=== PATIENT | male | born 2000 | race Two or more races ===

== ENCOUNTER 2024-05-05 18:40 | Emergency (ER) | payer OTHER ==
[~2024-05-05] VITALS: Ht 180.3 cm; Wt 78.9 kg
[2024-05-05 20:39] LABS: Urine Bacteria None Seen /hpf (None Seen)
[2024-05-05 20:56] LABS: Urine Blood Negative /uL (Negative); Urine Clarity Clear (Clear); Urine Color Yellow (Yellow); Urine Mucus FEW (None Seen); Urine Protein, UAD TRACE (Negative); Urine Specific Gravity 1.038 (1.001-1.035); Urine Urobilinogen Normal (Negative); Urine WBC 1 /hpf (0 - 3); Urine pH 5.5 (5.0-9.0)
[2024-05-05 21:45] VITALS: BP 124/59; PULSE 73; RESP 15; TEMP 98.5; O2SAT 98
== END 2024-05-05 21:48 | disposition home or self-care (01) ==
LOC: ER 18:40
DX: N50.3 Cyst of epididymis (principal); I86.1 Scrotal varices
CPT/HCPCS: 76870; 81001

== ENCOUNTER 2024-05-26 02:29 | Emergency (ER) | payer OTHER ==
[~2024-05-26] VITALS: Ht 180.3 cm; Wt 80.0 kg
[2024-05-26 03:43] LABS: Urine Bacteria None Seen /hpf (None Seen)
[2024-05-26 03:48] LABS: Urine Blood Negative /uL (Negative); Urine Clarity Clear (Clear); Urine Color Light-Yellow (Yellow); Urine Protein, UAD Negative (Negative); Urine Specific Gravity 1.029 (1.001-1.035); Urine Urobilinogen Normal (Negative); Urine WBC 1 /hpf (0 - 3)
[2024-05-26 04:11] LABS: Amphetamine Screen, Urine Neg (NEGATIVE); Barbiturate Scree,Urine Neg (NEGATIVE); Benzodiazephine Screen, Urine Neg (NEGATIVE); Cannabinoid Screen, Urine Neg (NEGATIVE); Cocaine Screen, Urine Neg (NEGATIVE); Opiate Scree,Urine Neg (NEGATIVE); Phencyclidine Screen, Urine Neg (NEGATIVE)
[2024-05-26 04:55] VITALS: TEMP 98.4
[2024-05-26] MEDS: HYDROcodone-ACET 5/325MG TAB PO ONE (04:56)
[2024-05-26] MEDS ORDERED: CYCL1POW XX (05:45)
[2024-05-26 06:04] VITALS: BP 105/56; PULSE 58
[2024-05-26 06:22] VITALS: RESP 18; O2SAT 100
== END 2024-05-26 06:25 | disposition home or self-care (01) ==
LOC: ER 02:29
DX: R10.9 Unspecified abdominal pain (principal)
CPT/HCPCS: 74176; 80307; 81001

== ENCOUNTER → 2024-06-23 | Outpatient (CLI) | payer OTHER ==
[~2024-06-23] MED LIST: CYCL1POW XX
[2024-06-23 13:11] LABS: Urine Bacteria None Seen /hpf (None Seen)
[2024-06-23 13:16] LABS: Basophils # (auto) 0 10 ^3/uL (0-0.2); Basophils % (auto) 0.7 % (0.0-2.0); Eosinophils # (auto) 0.1 10 ^3/uL (0-0.8); Eosinophils % (auto) 1.2 % (0.0-7.0); Hematocrit 46.6 % (41.0-53.0); Hemoglobin 16.6 g/dL (13.5-17.5); Lymphocytes % (auto) 34.9 % (10.0-50.0); Mean Corpuscular Hemoglobin 29.8 pg (28.0-32.0); Mean Corpuscular Hgb Conc. 35.6 g/dL (32.0-36.0); Mean Corpuscular Volume 83.8 fL (80.0-100.0); Monocytes # (auto) 0.4 10 ^3/uL (0-1.3); Monocytes % (auto) 7.4 % (0.0-12.0); Neutrophils # (auto) 3.1 10 ^3/uL (1.6-8.6); Neutrophils % (auto) 55.8 % (37.0-80.0); Nucleated Red Blood Cells % 0.1 %; Platelet Count (auto) 279 10^3/uL (140-450); Red Blood Cells 5.55 10^6/uL (4.5-5.90); Red Cell Distribution Width 12.6 % (11.8-14.3); White Blood Cell 5.6 10^3/uL (4.4-10.8)
[2024-06-23 13:23] LABS: Urine Blood Negative /uL (Negative); Urine Clarity Clear (Clear); Urine Color Yellow (Yellow); Urine Protein, UAD Negative (Negative); Urine Specific Gravity 1.022 (1.001-1.035); Urine Urobilinogen Normal (Negative); Urine WBC 1 /hpf (0 - 3)
[2024-06-23 14:03] LABS: Alanine Aminotransferase 20 U/L (7-40); Albumin 4.8 g/dL (3.2-4.8); Alkaline Phosphatase 63 U/L (46-116); Anion Gap 8 (5-15); Aspartate Aminotransferase 19 U/L (13-40); BUN/Creatinine Ratio 12.6 (10.0-20.0); Blood Urea Nitrogen 13 mg/dL (9-23); Carbon Dioxide 27 mmol/L (20-30); Chloride 103 mmol/L (98-107); Cholesterol 136 mg/dL (< 200); Glucose 87 mg/dL (74-106); HDL Cholesterol 49 mg/dL (40-59); LDL Cholesterol 82 mg/dL (< 100); Potassium 4.2 mmol/L (3.5-5.1); Sodium 138 mmol/L (136-145); Triglycerides 50 mg/dL (< 150)
[2024-06-23 14:04] LABS: Bilirubin, Total 1.7 mg/dL (0.2-1.0); Total Protein 7.8 g/dL (5.7-8.2)
== END | disposition home or self-care (01) ==
LOC: LAB 12:54
PROVIDERS: ATTEND Internal Medicine
DX: M25.561 Pain in right knee (principal); L70.0 Acne vulgaris; Z29.9 Encounter for prophylactic measures, unspecified
CPT/HCPCS: 36415; 80053; 80061; 81001; 83036; 84439; 84443; 85025

== ENCOUNTER → 2024-11-10 | Outpatient (CLI) | payer OTHER ==
[2024-11-10 09:45] LABS: Urine Bacteria None Seen /hpf (None Seen)
[2024-11-10 10:02] LABS: Basophils # (auto) 0 10 ^3/uL (0-0.2); Basophils % (auto) 0.8 % (0.0-2.0); Eosinophils # (auto) 0.1 10 ^3/uL (0-0.8); Eosinophils % (auto) 2.3 % (0.0-7.0); Hematocrit 46.9 % (41.0-53.0); Hemoglobin 15.8 g/dL (13.5-17.5); Lymphocytes # (auto) 1.8 10 ^3/uL (0.4-5.4); Lymphocytes % (auto) 39.3 % (10.0-50.0); Mean Corpuscular Hemoglobin 28.8 pg (28.0-32.0); Mean Corpuscular Hgb Conc. 33.8 g/dL (32.0-36.0); Mean Corpuscular Volume 85.3 fL (80.0-100.0); Monocytes # (auto) 0.4 10 ^3/uL (0-1.3); Monocytes % (auto) 9.1 % (0.0-12.0); Neutrophils # (auto) 2.2 10 ^3/uL (1.6-8.6); Neutrophils % (auto) 48.5 % (37.0-80.0); Nucleated Red Blood Cells % 0.2 %; Platelet Count (auto) 252 10^3/uL (140-450); Red Cell Distribution Width 12.9 % (11.8-14.3); White Blood Cell 4.5 10^3/uL (4.4-10.8)
[2024-11-10 11:12] LABS: Urine Blood Negative /uL (Negative); Urine Clarity Clear (Clear); Urine Color Yellow (Yellow); Urine Protein, UAD Negative (Negative); Urine Specific Gravity 1.028 (1.001-1.035); Urine Squamous Epithelial Cell FEW /hpf (<5); Urine Urobilinogen Normal (Negative); Urine WBC 1 /HPF (0-3); Urine pH 7.5 (5.0-9.0)
[2024-11-10 11:51] LABS: Alanine Aminotransferase 28 U/L (7-40); Anion Gap 6 (5-15); Calcium 10.1 mg/dL (8.7-10.4); Carbon Dioxide 29 mmol/L (20-31); Chloride 103 mmol/L (98-107); Potassium 4.1 mmol/L (3.5-5.1); Sodium 138 mmol/L (136-145)
[2024-11-10 11:52] LABS: BUN/Creatinine Ratio 14.3 (10.0-20.0); Blood Urea Nitrogen 14 mg/dL (9-23); Glucose 92 mg/dL (74-106)
[2024-11-10 11:54] LABS: Albumin 4.6 g/dL (3.2-4.8); Aspartate Aminotransferase 39 U/L (13-40); Bilirubin, Total 0.9 mg/dL (0.2-1.0); Total Protein 7.1 g/dL (5.7-8.2)
[2024-11-10 12:30] LABS: Alkaline Phosphatase 60 U/L (46-116)
[2024-11-11 13:33] LABS: Triglycerides 53 mg/dL (< 150)
[2024-11-11 13:34] LABS: Cholesterol 121 mg/dL (< 200); LDL Cholesterol 62 mg/dL (< 100)
[2024-11-11 13:35] LABS: HDL Cholesterol 52 mg/dL (40-59)
== END | disposition home or self-care (01) ==
LOC: LAB 09:30
PROVIDERS: ATTEND Internal Medicine
DX: Z00.01 Encounter for general adult medical examination with abnormal findings (principal); R17 Unspecified jaundice; Z83.3 Family history of diabetes mellitus; Z82.49 Family history of ischemic heart disease and other diseases of the circulatory system
CPT/HCPCS: 36415; 80053; 80061; 81001; 83036; 84439; 84443; 85025

== ENCOUNTER 2025-09-09 11:56 | Inpatient (IN) | payer OTHER ==
[~2025-09-09] VITALS: Ht 180.3 cm; Wt 95.0 kg
--- NOTE | 2025-09-09 12:54 | ED.PDOC ---
GI ASSESSMENT HPI Comments 25-year-old male who comes in with chief complaint of right upper quadrant pain. The patient states that the symptoms started last night. He states that the pain is an 8/10. He denies any radiation of the pain. The patient also denies any nausea, vomiting, fever or chills. He called his primary care doctor and was told to come to the emergency department's for evaluation. Chief Complaint: Abdominal Pain Time Seen by MD: 12:02 Reviewed Notes: Nurses Notes, Medications, Allergies (No allergies to medicatio ns) Allergies: Coded Allergies: NO KNOWN ALLERGIES (Unverified , 05/05/24) Home Meds Active Scripts Cyclobenzaprine HCl (Cyclobenzaprine Hydrochlo) 1 Pow Pow, 1 POW XX TID, #30 POW Prov:BRYNN CEDILLO MD 05/26/24 Information Source: Patient Mode of Arrival: Ambulatory Timing: Hours (Started at 11:30 a.m. last night) Duration: Since onset Prehospital treatment: None Quality: Aching, Burning Vomitus: None Stool: Normal Severity: Moderate Recent: None Recent Hx of: None Pain Location: RUQ Modifying Factors: Nothing Associated sign and symptoms: Abdominal Pain Past Medical History PAST MEDICAL HISTORY: Denies Surgical History: Denies all surgeries Family History Family History: Family hx of DM Social History Smoker: Non-Smoker Alcohol: Occasionally Drugs: Denies Drug Use Lives In: Home Constitutional: denies: chills, diaphoresis, fatigue, fever, malaise, sweats, weakness, others EENTM: denies: blurred vision, double vision, ear bleeding, ear discharge, ear drainage, ear pain, ear ringing, eye pain, eye redness, hearing loss, mouth pain, mouth swelling, nasal discharge, nose bleeding, nose congestion, nose pain, photophobia, tearing, throat pain, throat swelling, voice changes, others Respiratory: denies: cough, hemoptysis, orthopnea, SOB at rest, shortness of breath, SOB with excertion, stridor, wheezing, others Cardiovascular: denies: chest pain, dizzy spells, diaphoresis, Dyspnea on exertion, edema, irregular heart beat, left arm pain, lightheadedness, palpitations, PND, syncope, others Gastrointestinal: reports: abdominal pain; denies: abdomen distended, blood streaked bowels, constipated, diarrhea, dysphagia, difficulty swallowing, hematemesis, melena, nausea, poor appetite, poor fluid intake, rectal bleeding, rectal pain, vomiting, others Genitourinary: denies: burning, dysuria, flank pain, frequency, hematuria, incontinence, penile discharge, penile sore, pain, testicle pain, testicle swelling, urgency, others Neurological: denies: dizziness, fainting, headache, left sided numbness, left sided weakness, numbness, paresthesia, pre-existing deficit, right sided numbness, right sided weakness, seizure, speech problems, tingling, tremors, weakness, others Musculoskeletal: denies: back pain, gout, joint pain, joint swelling, muscle pain, muscle stiffness, neck pain, others Integumetry: denies: bruises, change in color, change in hair/nails, dryness, laceration, lesions, lumps, rash, wounds, others Allergic/Immunocompromised: denies: Difficulty Healing, Frequent Infections, Hives, Itching, others Hematologic/Lymphatic: denies: anemia, blood clots, easy bleeding, easy bruising, swollen glands, others Endocrine: denies: excessive hunger, excessive sweating, excessive thirst, excessive urination, flushing, intolerance to cold, intolerance to heat, unexplained weight gain, unexplained weight loss, others Psychiatric: denies: anxiety, bipolar disorder, depression, hopeless, panic disorder, schizophrenia, sleepless, suicidal, others Physical Exam General Appearance: Moderate Distress HEENT: Normal ENT Inspection, Pharynx Normal, TMs Normal Neck: Full Range of Motion, Non-Tender, Normal, Normal Inspection Respiratory: Chest Non-Tender, Lungs Clear, No Accessory Muscle Use, No Respiratory Distress, Normal Breath Sounds Cardiovascular: No Edema, No JVD, No Murmur, No Gallop, Normal Peripheral Pulses, Regular Rate/Rhythm Breast Exam: Deferred Gastrointestinal: No Organomegaly, No Pulsatile Mass, Normal Bowel Sounds, RUQ, Soft, Tenderness Genitalia: Deferred Pelvic: Deferred Rectal: Deferred Extremities: No calf tenderness, Normal capillary refill, Normal inspection, Normal range of motion, Non-tender, No pedal edema Musculoskeletal : Apperance: Normal Neurologic: Alert, quarryman II-XII nml as Tested, No Motor Deficits, Normal Affect, Normal Mood, No Sensory Deficits Cerebellar Function: Normal Reflexes: Normal Skin: Dry, Normal Color, Warm Lymphatic: No Adenopathy Was a procedure done? Was a procedure done?: No GI differential Dx Differential Diagnosis: Appendicitis, Cholangitis, Cholecystitis, Gastritis/PUD, Gastroenteritis X-Ray, Labs, Meds, VS Vital Signs Date Time Temp Pulse Resp B/P (MAP) Pulse Ox O2 Delivery O2 Flow Rate FiO2 09/09/25 14:28 98 Room Air* 0 21 09/09/25 14:23 77 17 98 Room Air* 0 21 09/09/25 14:20 98.2 64 17 154/77 (102) 98.2 09/09/25 11:58 98.6 105 16 130/71 97 98.6 Lab Test 09/09/25 12:39 Range/Units White Blood Count 11.4 H 4.4-10.8 10^3/uL Red Blood Count 5.46 4.5-5.90 10^6/uL Hemoglobin 15.5 13.5-17.5 g/dL Hematocrit 45.6 41.0-53.0 % Mean Corpuscular Volume 83.5 80.0-100.0 fL Mean Corpuscular Hemoglobin 28.4 28.0-32.0 pg Mean Corpuscular Hemoglobin Concent 34.1 32.0-36.0 g/dL Red Cell Distribution Width 12.5 11.8-14.3 % Platelet Count 274 140-450 10^3/uL Mean Platelet Volume 7.4 6.9-10.8 fL Neutrophils (%) (Auto) 85.9 H 37.0-80.0 % Lymphocytes (%) (Auto) 8.0 L 10.0-50.0 % Monocytes (%) (Auto) 5.7 0.0-12.0 % Eosinophils (%) (Auto) 0.1 0.0-7.0 % Basophils (%) (Auto) 0.3 0.0-2.0 % Neutrophils # (Auto) 9.8 H 1.6-8.6 10 ^3/uL Lymphocytes # (Auto) 0.9 0.4-5.4 10 ^3/uL Monocytes # (Auto) 0.6 0-1.3 10 ^3/uL Eosinophils # (Auto) 0 0-0.8 10 ^3/uL Basophils # (Auto) 0 0-0.2 10 ^3/uL Nucleated Red Blood Cells 0.0 % Sodium Level 136 136-145 mmol/L Potassium Level 4.3 3.5-5.1 mmol/L Chloride Level 102 98-107 mmol/L Carbon Dioxide Level 25 20-31 mmol/L Anion Gap 9 5-15 Blood Urea Nitrogen 23 9-23 mg/dL Creatinine 1.34 H 0.700-1.30 mg/dL Glomerular Filtration Rate Calc 76 >90 mL/min BUN/Creatinine Ratio 17.2 10.0-20.0 Serum Glucose 84 74-106 mg/dL Calcium Level 9.4 8.7-10.4 mg/dL Total Bilirubin 1.2 H 0.2-1.0 mg/dL Aspartate Amino Transferase (AST) 33 13-40 U/L Alanine Aminotransferase (ALT) 25 7-40 U/L Alkaline Phosphatase 68 46-116 U/L Total Protein 7.5 5.7-8.2 g/dL Albumin 4.6 3.2-4.8 g/dL Lipase 40 12-53 U/L Current Medications Medications (Trade) Dose Ordered Sig/Nimco Route Start Time Stop Time Status Last Admin Pantoprazole Sodium (Protonix) 40 mg ONCE ONCE IV 09/09/25 13:45 09/09/25 13:46 DC 09/09/25 14:01 PROCEDURE(s): GBUS - GALLBLADDER IMPRESSION: 1. Possible cholelithiasis without evidence of acute cholecystitis. IV Hep-Lock was established The patient was given Protonix 40 mg IV push The CBC shows an elevated white blood cell count of 11.4 The chemistry panel shows a creatinine of 1.34 but otherwise within normal limits The lipase is within normal limits The patient is being admitted at this time Images Reviewed?: Images reviewed and evaluated by me Time of 1ST Reevaluation: 12:53 Reevaluation 1ST: Unchanged Patient Education/Counseling: Diagnosis, Treatment, Prognosis Family Education/Counseling: No Family Present SEPSIS Sepsis Screen Date sepsis recognized/suspect: Sep 09, 2025 Time Sepsis recognized/suspect: 1200 Recent Procedure: No On Antibiotic Therapy: No Respiratory Rate >20: No Heart Rate >90: Yes Temp<36 C (96.8 F) or >38.3 C: No SBP <90 or MAP <65 mmHG: No New Acute Mental Status Change: No Is the patient on CPAP, BIPAP,: No Physician Orders Urinalysis (09/09/25 12:19) Gallbladder (09/09/25 12:19) Heplock Iv (09/09/25 13:44) Vital Signs Date Time Temp Pulse Resp B/P (MAP) Pulse Ox O2 Delivery O2 Flow Rate FiO2 09/09/25 14:28 98 Room Air* 0 21 09/09/25 14:23 77 17 98 Room Air* 0 21 09/09/25 14:20 98.2 64 17 154/77 (102) 98.2 09/09/25 11:58 98.6 105 16 130/71 97 98.6 Laboratory Tests Test 09/09/25 12:39 White Blood Count 11.4 10^3/uL (4.4-10.8) H Medications Medications Dose Ordered Sig/Nimco Route Start Time Stop Time Status Last Admin Dose Admin Pantoprazole Sodium 40 mg ONCE ONCE IV 09/09/25 13:45 09/09/25 13:46 DC 09/09/25 14:01 Departure 1 Departure Time of Disposition: 15:49 Impression: Primary Impression: Intractable abdominal pain Additional Impression: Cholelithiasis Qualified Codes: K80.20 - Calculus of gallbladder without cholecystitis without obstruction Disposition: ADMITTED INPATIENT Admit to: Med Surg Condition: Fair Critical Care Note Critical Care Time?: No Stability Stability form required: Yes Unstable for transfer: ED Physician Assesment (Clinical assesment) Heart Score Heart Score: Heart Score Response (Comments) Value History N/A 0 EKG N/A 0 Age N/A 0 Risk Factors N/A 0 Troponin N/A 0 Total 0 I personally scribed for IRMA JIN MD ([email or web address]) on 09/09/25 at 13:30. Electronically submitted by [email or web address]). IRMA JIN MD Sep 09, 2025 12:54
[2025-09-09 12:56] LABS: Hematocrit 45.6 % (41.0-53.0); Hemoglobin 15.5 g/dL (13.5-17.5); Mean Corpuscular Hemoglobin 28.4 pg (28.0-32.0); Mean Corpuscular Volume 83.5 fL (80.0-100.0); Nucleated Red Blood Cells % 0.0 %
[2025-09-09 13:13] LABS: Alanine Aminotransferase 25 U/L (7-40); Albumin 4.6 g/dL (3.2-4.8); Alkaline Phosphatase 68 U/L (46-116); Anion Gap 9 (5-15); BUN/Creatinine Ratio 17.2 (10.0-20.0); Bilirubin, Total 1.2 mg/dL (0.2-1.0); Blood Urea Nitrogen 23 mg/dL (9-23); Calcium 9.4 mg/dL (8.7-10.4); Carbon Dioxide 25 mmol/L (20-31); Chloride 102 mmol/L (98-107); Glucose 84 mg/dL (74-106); Lipase 40 U/L (12-53); Potassium 4.3 mmol/L (3.5-5.1); Sodium 136 mmol/L (136-145); Total Protein 7.5 g/dL (5.7-8.2)
--- NOTE | 2025-09-09 13:21 | DVH ---
EXAM DESCRIPTION: US GALLBLADDER CLINICAL HISTORY: pain to the ruq COMPARISON: None TECHNIQUE: Using real-time ultrasonography multiple images of the abdomen were obtained. FINDINGS: The liver measures 14.9 cm. No focal liver masses. The liver echongenicity is within normal limits. The pancreas is obscured by shadowing bowel gas. Possible gallstones in the gallbladder. No gallbladder wall thickening. No pericholecystic fluid. Negative sonographic Juan sign. The common bile duct measures 3.3 mm in diameter. There is no free intraperitoneal fluid. The right kidney measures 10.7 cm. No right renal calculi or hydronephrosis. IMPRESSION: 1. Possible cholelithiasis without evidence of acute cholecystitis.
[2025-09-09] MEDS: PANTOPRAZOLE 40 MG/10 ML VIAL INJ IV ONE (14:01)
[2025-09-09] MEDS: ONDANSETRON HCL 4 MG/2 ML VIAL IV ONE (14:10)
[2025-09-09] MEDS: MORPHINE SULFATE 4 MG/ML SYR/VIAL IV ONE (14:10)
[2025-09-09 14:23] VITALS: PULSE 77; RESP 17; O2SAT 98
[2025-09-09] MEDS ORDERED: ACETAMINOPHEN 325 MG TAB PO PRN (14:45)
[2025-09-09] MEDS ORDERED: MORPHINE SULFATE INJ 2 MG/ml SYRG IV PRN (14:45)
[2025-09-09] MEDS ORDERED: ONDANSETRON HCL 4 MG/2 ML VIAL IV PRN (14:45)
--- NOTE | 2025-09-09 15:05 | DVHHP2 ---
History of Present Illness Reason for Visit: Abdominal pain History of Present Illness 25-year-old male presents for evaluation. Patient followed right upper quadrant abdominal pain last night around 11:00 p.m.. He states the pain becomes worse when he lays flat and takes deep breaths. Denies nausea or vomiting. No fever or chills. Past Medical History Denies Past Surgical History Denies Family History Diabetes mellitus Smoke: No ALCOHOL: occassional Drugs: None Lives: with Family Review of Systems Review of Systems Review of systems are currently negative otherwise advised. Allergies: Coded Allergies: NO KNOWN ALLERGIES (Unverified , 05/05/24) Medications Current Medications Medications Dose Ordered Sig/Nimco Route Start Time Stop Time Status Last Admin Dose Admin Pantoprazole Sodium 40 mg DAILY IV 09/10/25 10:00 Acetaminophen/ Hydrocodone Bitart 1 tab Q4HP PRN PO 09/09/25 14:45 Ondansetron HCl 4 mg Q4HP PRN IV 09/09/25 14:45 Acetaminophen 650 mg Q6HP PRN PO 09/09/25 14:45 Morphine Sulfate 2 mg Q6HPRN PRN IV 09/09/25 14:45 Exam Vital Signs Vital Signs Date Time Temp Pulse Resp B/P (MAP) Pulse Ox O2 Delivery O2 Flow Rate FiO2 09/09/25 14:28 98 Room Air* 0 21 09/09/25 14:23 77 17 09/09/25 14:20 98.2 154/77 (102) 98.2 Exam Gen: 25-year-old male in mild distress Skin: Warm, dry, normal color and texture, no rash. HEENT: Normocephalic atraumatic, mucous membranes moist and pink. Neck: Cervical and supraclavicular nodes normal without enlargement, trachea is midline, thyroid gland is normal without masses. Pulmonary: Clear to auscultation and percussion bilaterally. Cardiac: Regular rate and rhythm. No murmur Abdomen: Soft, right upper quadrant abdominal pain, nondistended, bowel sounds present all 4 quadrants, no guarding, no rigidity, no organomegaly. Extremities: No cyanosis, clubbing, no edema Neuro: Cranial nerves II through XII grossly intact, normal affect and speech, no focal motor deficits. Labs/Xrays Labs Test 09/09/25 12:39 Range/Units White Blood Count 11.4 H 4.4-10.8 10^3/uL Red Blood Count 5.46 4.5-5.90 10^6/uL Hemoglobin 15.5 13.5-17.5 g/dL Hematocrit 45.6 41.0-53.0 % Mean Corpuscular Volume 83.5 80.0-100.0 fL Mean Corpuscular Hemoglobin 28.4 28.0-32.0 pg Mean Corpuscular Hemoglobin Concent 34.1 32.0-36.0 g/dL Red Cell Distribution Width 12.5 11.8-14.3 % Platelet Count 274 140-450 10^3/uL Mean Platelet Volume 7.4 6.9-10.8 fL Neutrophils (%) (Auto) 85.9 H 37.0-80.0 % Lymphocytes (%) (Auto) 8.0 L 10.0-50.0 % Monocytes (%) (Auto) 5.7 0.0-12.0 % Eosinophils (%) (Auto) 0.1 0.0-7.0 % Basophils (%) (Auto) 0.3 0.0-2.0 % Neutrophils # (Auto) 9.8 H 1.6-8.6 10 ^3/uL Lymphocytes # (Auto) 0.9 0.4-5.4 10 ^3/uL Monocytes # (Auto) 0.6 0-1.3 10 ^3/uL Eosinophils # (Auto) 0 0-0.8 10 ^3/uL Basophils # (Auto) 0 0-0.2 10 ^3/uL Nucleated Red Blood Cells 0.0 % Sodium Level 136 136-145 mmol/L Potassium Level 4.3 3.5-5.1 mmol/L Chloride Level 102 98-107 mmol/L Carbon Dioxide Level 25 20-31 mmol/L Anion Gap 9 5-15 Blood Urea Nitrogen 23 9-23 mg/dL Creatinine 1.34 H 0.700-1.30 mg/dL Glomerular Filtration Rate Calc 76 >90 mL/min BUN/Creatinine Ratio 17.2 10.0-20.0 Serum Glucose 84 74-106 mg/dL Calcium Level 9.4 8.7-10.4 mg/dL Total Bilirubin 1.2 H 0.2-1.0 mg/dL Aspartate Amino Transferase (AST) 33 13-40 U/L Alanine Aminotransferase (ALT) 25 7-40 U/L Alkaline Phosphatase 68 46-116 U/L Total Protein 7.5 5.7-8.2 g/dL Albumin 4.6 3.2-4.8 g/dL Lipase 40 12-53 U/L SEPSIS Sepsis Screen Date sepsis recognized/suspect: Sep 09, 2025 Time Sepsis recognized/suspect: 1425 Recent Procedure: No On Antibiotic Therapy: No Respiratory Rate >20: No Heart Rate >90: No Temp<36 C (96.8 F) or >38.3 C: No SBP <90 or MAP <65 mmHG: No New Acute Mental Status Change: No Is the patient on CPAP, BIPAP,: No Physician Orders Urinalysis (09/09/25 12:19) Gallbladder (09/09/25 12:19) Heplock Iv (09/09/25 13:44) * Surgical Consult (09/09/25 ) Nm Hida Scan (09/09/25 14:34) Pantoprazole (Protonix) (09/10/25 10:00) Admit (09/09/25 14:34) Hydrocodone-Acet 5/325mg Tab ([place] 5/32 (09/09/25 14:45) Ondansetron Hcl (Zofran) (09/09/25 14:45) Complete Blood Count (09/10/25 04:00) Comprehensive Metabolic Panel (09/10/25 04:00) Condition: Stable (09/09/25 14:34) Acetaminophen Tablet (Tylenol Tablet) (09/09/25 14:45) Clear Liq Diet (09/09/25 Dinner) Bedrest With Bathroom Privileg (09/09/25 14:34) Morphine Sulfate Injection (09/09/25 14:45) Vital Signs Date Time Temp Pulse Resp B/P (MAP) Pulse Ox O2 Delivery O2 Flow Rate FiO2 09/09/25 14:28 98 Room Air* 0 21 09/09/25 14:23 77 17 98 Room Air* 0 21 09/09/25 14:20 98.2 64 17 154/77 (102) 98.2 09/09/25 11:58 98.6 105 16 130/71 97 98.6 Laboratory Tests Test 09/09/25 12:39 White Blood Count 11.4 10^3/uL (4.4-10.8) H Medications Medications Dose Ordered Sig/Nimco Route Start Time Stop Time Status Last Admin Dose Admin Pantoprazole Sodium 40 mg ONCE ONCE IV 09/09/25 13:45 09/09/25 13:46 DC 09/09/25 14:01 40 MG Assessment/Plan Assessment/Plan Assessment Acute abdominal pain Cholelithiasis Acute kidney injury Plan Admit the patient to [facility] surge to the hospitalist Surgical consultation HIDA scan pending Maintenance IV fluids Pain management Continue treatment per orders. Plan discussed with: Patient My Orders Orders - GEMMA MCDONOUGH Procedure Category Date Status Time * Surgical Consult CONS 09/09/25 Transmitted Nm Hida Scan NM 09/09/25 Logged 14:34 Pantoprazole PHA 09/10/25 In Process (Protonix) 10:00 Admit ADMIT 09/09/25 Transmitted 14:34 Hydrocodone-Acet PHA 09/09/25 In Process 5/325mg Tab ([place] 14:45 Ondansetron Hcl PHA 09/09/25 In Process (Zofran) 14:45 Complete Blood Count LAB 09/10/25 Verified 04:00 Comprehensive LAB 09/10/25 Verified Metabolic Panel 04:00 Condition: Stable VICENTE 09/09/25 In Process 14:34 Acetaminophen Tablet PHA 09/09/25 In Process (Tylenol Tablet) 14:45 Clear Liq Diet DIET 09/09/25 Transmitted Dinner Bedrest With Bathroom VCIENTE 09/09/25 In Process Privileg 14:34 Morphine Sulfate PHA 09/09/25 In Process Injection 14:45 Date of Service: Sep 09, 2025 Billing Provider: GEMMA MCDONOUGH Common Visit Codes: [id number] INP/OBS CARE (MOD) GEMMA MCDONOUGH Sep 09, 2025 15:05
[2025-09-09] MEDS: SODIUM CHLORIDE 0.9% 1,000 ML IV ONE (15:15)
[2025-09-09] MEDS: HYDROcodone-ACET 5/325MG TAB PO PRN (18:59)
[2025-09-09 19:00] VITALS: PULSE 82; RESP 16; O2SAT 100
[2025-09-09 19:08] VITALS: BP 152/75; PULSE 82; RESP 16; TEMP 98.2; O2SAT 100
--- NOTE | 2025-09-09 19:08 | DVH ---
NM NM HIDA SCAN INDICATION: r/o cholecystitis COMPARISON: None TECHNIQUE: 4.5 mCi of Tc-99m Choletec was given intravenously. FINDINGS: Liver uptake is prompt and uniform. Activity in the common bile duct and bowel are seen. The gallbladder is seen. IMPRESSION: NO EVIDENCE FOR CYSTIC DUCT OBSTRUCTION.
[2025-09-09 21:00] VITALS: BP 113/58; PULSE 65; RESP 18; TEMP 98.4; O2SAT 97
[2025-09-09 22:33] VITALS: BP 145/73; PULSE 61; RESP 18; TEMP 98.6; O2SAT 98
[2025-09-10] VITALS (9 sets, daily range): BP systolic 107–126; BP diastolic 46–97; PULSE 42–92; RESP 17–18; TEMP 97.8–98.4; O2SAT 95–100
[2025-09-10 07:08] LABS: Hematocrit 44.4 % (41.0-53.0); Hemoglobin 15.2 g/dL (13.5-17.5); Mean Corpuscular Hemoglobin 28.8 pg (28.0-32.0); Mean Corpuscular Volume 84.4 fL (80.0-100.0); Nucleated Red Blood Cells % 0.0 %
[2025-09-10 07:21] LABS: Alanine Aminotransferase 23 U/L (7-40); Albumin 4.1 g/dL (3.2-4.8); Alkaline Phosphatase 61 U/L (46-116); Anion Gap 10 (5-15); BUN/Creatinine Ratio 7.5 (10.0-20.0); Calcium 9.1 mg/dL (8.7-10.4); Carbon Dioxide 25 mmol/L (20-31); Chloride 105 mmol/L (98-107); Potassium 3.8 mmol/L (3.5-5.1); Sodium 140 mmol/L (136-145); Total Protein 6.9 g/dL (5.7-8.2)
[2025-09-10 07:25] LABS: Bilirubin, Total 1.8 mg/dL (0.2-1.0); Blood Urea Nitrogen 8 mg/dL (9-23); Glucose 71 mg/dL (74-106)
[2025-09-10] MEDS: PANTOPRAZOLE 40 MG/10 ML VIAL INJ IV SCH (09:27)
--- NOTE | 2025-09-10 12:02 | DVHPN2 ---
Reviewed: Care Plan, H&P, Labs, Medications, Previous Orders, Radiology Changes from previous H/P or p: No Changes Objective Vitals Vital Signs Date Time Temp Pulse Resp B/P (MAP) Pulse Ox O2 Delivery O2 Flow Rate FiO2 09/10/25 09:00 97.8 65 18 107/48 (67) 97 97.8 09/10/25 08:00 Room Air* 0 21 Intake/Output Intake and Output 09/10/25 07:00 Intake Total 0 ml Balance 0 ml Intake Oral 0 ml Medications Current Medications Medications Dose Ordered Sig/Nimco Route Start Time Stop Time Status Last Admin Dose Admin Pantoprazole Sodium 40 mg DAILY IV 09/10/25 10:00 09/10/25 09:27 40 MG Acetaminophen/ Hydrocodone Bitart 1 tab Q4HP PRN PO 09/09/25 14:45 09/09/25 18:59 1 TAB Ondansetron HCl 4 mg Q4HP PRN IV 09/09/25 14:45 Acetaminophen 650 mg Q6HP PRN PO 09/09/25 14:45 Morphine Sulfate 2 mg Q6HPRN PRN IV 09/09/25 14:45 Laboratory Results Laboratory Tests 09/10/25 04:42 Chemistry Test 09/09/25 12:39 09/10/25 04:42 Albumin 4.6 g/dL (3.2-4.8) 4.1 g/dL (3.2-4.8) Calcium Level 9.4 mg/dL (8.7-10.4) 9.1 mg/dL (8.7-10.4) Total Protein 7.5 g/dL (5.7-8.2) 6.9 g/dL (5.7-8.2) Lipid panel Test 09/09/25 12:39 Lipase 40 U/L (12-53) LFT Test 09/09/25 12:39 09/10/25 04:42 Alanine Aminotransferase (ALT) 25 U/L (7-40) 23 U/L (7-40) Alkaline Phosphatase 68 U/L (46-116) 61 U/L (46-116) Aspartate Amino Transferase (AST) 33 U/L (13-40) 27 U/L (13-40) Total Bilirubin 1.2 mg/dL (0.2-1.0) H 1.8 mg/dL (0.2-1.0) H Labs and/or images reviewed: Labs reviewed by me, Image(s) reviewed by me Assessment/Plan Assessment/Plan Acute abdominal pain Cholelithiasis without evidence of cholecystitis, HIDA scan neg, consult for surgeon Dr. Blaine Caraballo Acute kidney injury Acute dehydration: IV fluids Time Spent 40 minutes Plan discussed with: Patient Date of Service: Sep 10, 2025 Billing Provider: JAILYN MICHELLE MD Common Visit Codes: [id number] INP/OBS CARE(HIGH) JAILYN MICHELLE MD Sep 10, 2025 12:02
--- NOTE | 2025-09-10 14:30 | DVHINCON2 ---
Date of service: Sep 10, 2025 Family History: Cardiovascular disease G8 FATHER Diabetes mellitus G8 FATHER Allergies: Coded Allergies: NO KNOWN ALLERGIES (Unverified , 05/05/24) Home Meds No Active Prescriptions or Reported Meds Current Medications Current Medications Medications (Trade) Dose Ordered Sig/Nimco Route PRN Reason Start Time Stop Time Status Last Admin Pantoprazole Sodium (Protonix) 40 mg DAILY IV 09/10/25 10:00 09/10/25 09:27 Acetaminophen/ Hydrocodone Bitart ([place] 5/325MG Tab) 1 tab Q4HP PRN PO MODERATE PAIN (4-6 PAIN SCALE) 09/09/25 14:45 09/09/25 18:59 Ondansetron HCl (Zofran) 4 mg Q4HP PRN IV NAUSEA / VOMITING 09/09/25 14:45 Acetaminophen (Tylenol Tablet) 650 mg Q6HP PRN PO PAIN SCALE 1-3 OR TEMP>100.4 09/09/25 14:45 Morphine Sulfate 2 mg Q6HPRN PRN IV SEVERE PAIN (7-10 PAIN SCALE) 09/09/25 14:45 Vital Signs Vital Signs Date Time Temp Pulse Resp B/P (MAP) Pulse Ox O2 Delivery O2 Flow Rate FiO2 09/10/25 13:00 98.0 45 18 125/97 (106) 98 98.0 09/10/25 08:00 Room Air* 0 21 Labs/Diagnostic Data Labs Test 09/10/25 04:42 09/09/25 12:39 Range/Units White Blood Count 8.0 # 4.4-10.8 10^3/uL Red Blood Count 5.26 4.5-5.90 10^6/uL Hemoglobin 15.2 13.5-17.5 g/dL Hematocrit 44.4 41.0-53.0 % Mean Corpuscular Volume 84.4 80.0-100.0 fL Mean Corpuscular Hemoglobin 28.8 28.0-32.0 pg Mean Corpuscular Hemoglobin Concent 34.2 32.0-36.0 g/dL Red Cell Distribution Width 12.6 11.8-14.3 % Platelet Count 239 140-450 10^3/uL Mean Platelet Volume 7.8 6.9-10.8 fL Neutrophils (%) (Auto) 51.6 37.0-80.0 % Lymphocytes (%) (Auto) 36.3 10.0-50.0 % Monocytes (%) (Auto) 9.9 0.0-12.0 % Eosinophils (%) (Auto) 1.6 0.0-7.0 % Basophils (%) (Auto) 0.6 0.0-2.0 % Neutrophils # (Auto) 4.1 1.6-8.6 10 ^3/uL Lymphocytes # (Auto) 2.9 0.4-5.4 10 ^3/uL Monocytes # (Auto) 0.8 0-1.3 10 ^3/uL Eosinophils # (Auto) 0.1 0-0.8 10 ^3/uL Basophils # (Auto) 0.1 0-0.2 10 ^3/uL Nucleated Red Blood Cells 0.0 % Sodium Level 140 136-145 mmol/L Potassium Level 3.8 3.5-5.1 mmol/L Chloride Level 105 98-107 mmol/L Carbon Dioxide Level 25 20-31 mmol/L Anion Gap 10 5-15 Blood Urea Nitrogen 8 #L 9-23 mg/dL Creatinine 1.07 0.700-1.30 mg/dL Glomerular Filtration Rate Calc 99 >90 mL/min BUN/Creatinine Ratio 7.5 L 10.0-20.0 Serum Glucose 71 L 74-106 mg/dL Calcium Level 9.1 8.7-10.4 mg/dL Total Bilirubin 1.8 H 0.2-1.0 mg/dL Aspartate Amino Transferase (AST) 27 13-40 U/L Alanine Aminotransferase (ALT) 23 7-40 U/L Alkaline Phosphatase 61 46-116 U/L Total Protein 6.9 5.7-8.2 g/dL Albumin 4.1 3.2-4.8 g/dL Lipase 40 12-53 U/L Assessment [id number] C/O RUQ PAIN AFEBRILE VSS ABD SOFT TENDER RUQ LFT T BILI MILD ELEVATION HIDA SCAN NEG MRCP PENDING R/O AC CHOLECYSTITIS CONSIDER SURGERY BASED ON ONGOING EVAL Plan discussed with: Patient KATERIN AGUAYO MD Sep 10, 2025 14:30
--- NOTE | 2025-09-10 14:48 | DVH ---
CLINICAL HISTORY: r/o choledocholithiasis TECHNIQUE: MRCP of the abdomen was performed without gadolinium. 3D reconstructed images were created under concurrent radiologist supervision and archived on the PACS system. WID: COMPARISON: None FINDINGS: The liver is unremarkable. Gallbladder is dilated. No evidence of gallbladder stones. The common bile duct is within normal limits without evidence of choledocholithiasis. The pancreas is unremarkable without pancreatic ductal dilation. The spleen, adrenal glands, and right kidney is within normal limits. 1 cm cyst within the left upper pole of the kidney. No evidence of hydronephrosis. No marrow replacing process within the imaged spine. The imaged bowel is unremarkable. The abdominal aorta is normal in caliber. IMPRESSION: Dilated gallbladder without surrounding inflammatory change or edema of unknown etiology. No evidence of choledocholithiasis or cholelithiasis
--- NOTE | 2025-09-10 14:49 | DVHCONRES ---
Date Seen: Sep 10, 2025 Resident Creating Document: JOSE EUCEDA RESIDENT Referring Physician DR MICHELLE History of Present Illness 25-year-old male with no past medical history presents to the ER with a chief complaint of right-sided upper abdominal pain for the past 2 days, started after few hours of eating dinner. He said he ate some chicken which is his usual routine, he reports pain on ambulation, worsening pain on deep breaths and sitting or standing. Denies fever, chills, nausea, vomiting, constipation or diarrhea at this time. Patient was taking ibuprofen for the couple of days. GI consultation for cholelithiasis Past medical/surgical history: Denies Home medication: Ibuprofen PRN Social history: Denies smoking/drinking/drug use Patient seen and examined. Normoactive bowel sounds. Family History: Cardiovascular disease G8 FATHER Diabetes mellitus G8 FATHER Allergies: Coded Allergies: NO KNOWN ALLERGIES (Unverified , 05/05/24) Home Meds No Active Prescriptions or Reported Meds Current Medications Current Medications Medications (Trade) Dose Ordered Sig/Nimco Route PRN Reason Start Time Stop Time Status Last Admin Pantoprazole Sodium (Protonix) 40 mg DAILY IV 09/10/25 10:00 09/10/25 09:27 Review of Systems Eyes: No Pain, No Vision change, No Conjunctivae inflammation, No Eyelid inflammation, No Other, No Redness ENT: No Ear pain, No Ear discharge, No Nose pain, No Nose discharge, No Nose congestion, No Mouth pain, No Mouth swelling, No Throat pain, No Throat swelling, No Other Cardiovascular: No Chest Pain, No Palpitations, No Orthopnea, No PND, No Edema, No Lt Headedness, No Other Respiratory: No Cough, No Dry, No Shortness of breath, No SOB with exertion, No Wheezing, No Hemoptysis, No Pleuritic Pain, No Sputum, No Other Gastrointestinal: Reports abdominal pain, denies nausea or vomiting No Diarrhea, No Constipation, No Melena, No Hematochezia, No Other Genitourinary: No Dysuria, No Frequency, No Incontinence, No Hematuria, No Retention, No Other Musculoskeletal: No other, No neck pain, No shoulder pain, No arm pain, No back pain, No hand pain, No leg pain, No foot pain Skin: No Rash, No Lesions, No Jaundice, No Bruising, No Other Vital Signs Vital Signs Date Time Temp Pulse Resp B/P (MAP) Pulse Ox O2 Delivery O2 Flow Rate FiO2 09/10/25 13:00 98.0 45 18 125/97 (106) 98 98.0 09/10/25 08:00 Room Air* 0 21 Physical Exam Patient lying in bed, in no acute distress General: Over weight, afebrile, palor, mucosae are moist Cardiovascular: Regular S1 and S2. No murmurs, gallops or rubs. No JVD elevation. No pedal edema Respiratory: Normal B/L air entry on room air. Clear lung sounds on auscultation Abdomen: Soft, nontender, nondistended, normoactive bowel sounds, no rebound tenderness, no organomegaly, no masses Genitourinary: Deferred MSK/skin: Mobilizes 4 limbs. Skin is dry and warm Neurological: No motor, no sensitive deficits, normal speech. Pupils are isocoric and reactive. Psych/Mental Status: A/Ox3 Labs/Diagnostic Data Labs Test 09/10/25 14:31 09/10/25 04:42 09/09/25 12:39 Range/Units White Blood Count 8.0 # 4.4-10.8 10^3/uL Red Blood Count 5.26 4.5-5.90 10^6/uL Hemoglobin 15.2 13.5-17.5 g/dL Hematocrit 44.4 41.0-53.0 % Mean Corpuscular Volume 84.4 80.0-100.0 fL Mean Corpuscular Hemoglobin 28.8 28.0-32.0 pg Mean Corpuscular Hemoglobin Concent 34.2 32.0-36.0 g/dL Red Cell Distribution Width 12.6 11.8-14.3 % Platelet Count 239 140-450 10^3/uL Mean Platelet Volume 7.8 6.9-10.8 fL Neutrophils (%) (Auto) 51.6 37.0-80.0 % Lymphocytes (%) (Auto) 36.3 10.0-50.0 % Monocytes (%) (Auto) 9.9 0.0-12.0 % Eosinophils (%) (Auto) 1.6 0.0-7.0 % Basophils (%) (Auto) 0.6 0.0-2.0 % Neutrophils # (Auto) 4.1 1.6-8.6 10 ^3/uL Lymphocytes # (Auto) 2.9 0.4-5.4 10 ^3/uL Monocytes # (Auto) 0.8 0-1.3 10 ^3/uL Eosinophils # (Auto) 0.1 0-0.8 10 ^3/uL Basophils # (Auto) 0.1 0-0.2 10 ^3/uL Nucleated Red Blood Cells 0.0 % Sodium Level 140 136-145 mmol/L Potassium Level 3.8 3.5-5.1 mmol/L Chloride Level 105 98-107 mmol/L Carbon Dioxide Level 25 20-31 mmol/L Anion Gap 10 5-15 Blood Urea Nitrogen 8 #L 9-23 mg/dL Creatinine 1.07 0.700-1.30 mg/dL Glomerular Filtration Rate Calc 99 >90 mL/min BUN/Creatinine Ratio 7.5 L 10.0-20.0 Serum Glucose 71 L 74-106 mg/dL Calcium Level 9.1 8.7-10.4 mg/dL Total Bilirubin 1.8 H 0.2-1.0 mg/dL Aspartate Amino Transferase (AST) 27 13-40 U/L Alanine Aminotransferase (ALT) 23 7-40 U/L Alkaline Phosphatase 61 46-116 U/L Total Protein 6.9 5.7-8.2 g/dL Albumin 4.1 3.2-4.8 g/dL Lipase 40 12-53 U/L Assessment Abdominal pain Rule out cholecystitis Acute kidney injury likely vasomotor GB ultrasound shows Possible cholelithiasis without evidence of acute cholecy stitis. HIDA scan shows no cystic duct obstruction MRCP shows Dilated gallbladder without surrounding inflammatory change or edema of unknown etiology, No evidence of choledocholithiasis or cholelithiasis Plan/Recommendation Plan: Recommendation: Dr. Caraballo Continue clear liquid diet. Pending urinalysis. COVID and flu testing pending. Follow up with direct bilirubin Cholelithiasis and HIDA scan or MRCP Continue conservative manage Protonix 40 mg p.o. daily Follow up with surgery recommendations Plan discussed with patient in which all questions have been answered Case discussed with Dr. Caraballo Plan discussed with: Patient JOSE EUCEDA RESIDENT Sep 10, 2025 14:49
[2025-09-10 15:08] LABS: INR 1.14 (0.9-1.15); Partial Thromboplastin Time 28.8 SEC (24.5-34.5); Prothrombin Time 11.9 sec (9.3-11.8)
[2025-09-10 18:11] LABS: Amphetamine Screen, Urine Neg (NEGATIVE); Barbiturate Scree,Urine Neg (NEGATIVE); Benzodiazephine Screen, Urine Neg (NEGATIVE); Cannabinoid Screen, Urine Neg (NEGATIVE); Cocaine Screen, Urine Neg (NEGATIVE); Opiate Scree,Urine Neg (NEGATIVE); Phencyclidine Screen, Urine Neg (NEGATIVE)
[2025-09-10 18:19] LABS: Urine Protein, UAD Negative (Negative)
[2025-09-11] VITALS (8 sets, daily range): BP systolic 100–150; BP diastolic 44–75; PULSE 45–91; RESP 16–18; TEMP 97.6–98.2; O2SAT 96–99
--- NOTE | 2025-09-11 02:00 | DVHINCON2 ---
DATE OF CONSULTATION: 09/10/2025 HISTORY OF PRESENT ILLNESS: This patient is 25 years old, complaining of right upper quadrant pain. The pain is persisting, but it is better than before. Some nausea. No vomiting. No constipation or diarrhea. No hematemesis or melena. No bleeding per rectum. PAST MEDICAL HISTORY: No diabetes, hypertension. PAST SURGICAL HISTORY: No significant surgical history. PHYSICAL EXAMINATION: VITAL SIGNS: Afebrile, stable signs. HEENT: With no evidence of pallor, cyanosis, or jaundice. NECK: Supple and nontender, with no thyromegaly or lymphadenopathy. CHEST AND LUNGS: Clear. HEART: Within normal limits. ABDOMEN: Soft, minimally tender in the right upper quadrant with no rebound. EXTREMITIES: Unremarkable. NEUROLOGIC: Intact. CLINICAL IMPRESSION: Rule out acute cholecystitis. PLAN: His white cell count is down to 8. His chemistry is mild, total bilirubin elevation to 1.8 from 1.2 and imaging studies show possible cholelithiasis without evidence of acute cholecystitis on the ultrasound and HIDA scan was negative for cystic duct obstruction, but acute cholecystitis cannot be ruled out. MRCP is pending. To determine the need for surgery based upon ongoing evaluation, it can be considered. MD KRISTAL Dalton/BRENTON TID: [id number] RECEIPT: [id number] cc: Anthony Comer MD
[2025-09-11 06:05] LABS: COVID19 ANTIGEN SOFIA FIA NEGATIVE (NEGATIVE)
--- NOTE | 2025-09-11 10:57 | DVHPN2 ---
Reviewed: Care Plan, H&P, Labs, Medications, Previous Orders, Radiology Changes from previous H/P or p: No Changes Objective Vitals Vital Signs Date Time Temp Pulse Resp B/P (MAP) Pulse Ox O2 Delivery O2 Flow Rate FiO2 09/11/25 09:00 97.9 55 18 108/45 (66) 96 97.9 09/11/25 08:00 Room Air* 0 21 Intake/Output Intake and Output 09/11/25 07:00 Intake Total 525 ml Balance 525 ml Intake Oral 525 ml # Voids 4 Medications Current Medications Medications Dose Ordered Sig/Nimco Route Start Time Stop Time Status Last Admin Dose Admin Pantoprazole Sodium 40 mg DAILY IV 09/10/25 10:00 09/10/25 09:27 40 MG Acetaminophen/ Hydrocodone Bitart 1 tab Q4HP PRN PO 09/09/25 14:45 09/10/25 18:35 1 TAB Ondansetron HCl 4 mg Q4HP PRN IV 09/09/25 14:45 Acetaminophen 650 mg Q6HP PRN PO 09/09/25 14:45 Morphine Sulfate 2 mg Q6HPRN PRN IV 09/09/25 14:45 Laboratory Results Laboratory Tests 09/10/25 04:42 Coagulation Test 09/10/25 14:31 Prothrombin Time 11.9 sec (9.3-11.8) H Prothrombin Time INR 1.14 (0.9-1.15) Activated Partial Thromboplast Time 28.8 SEC (24.5-34.5) Urinalysis Test 09/10/25 17:38 Urine Color Light-yellow (Yellow) Urine Clarity Clear (Clear) Urine pH 5.5 (5.0-9.0) Urine Specific [place] 1.007 (1.001-1.035) Urine Protein Negative (Negative) Urine Ketones 1+ (Negative) H Urine Blood Negative /uL (Negative) Urine Nitrite Negative (Negative) Urine Bilirubin Negative (Negative) Urine Urobilinogen Normal mg/dL (Negative) Urine Leukocyte Esterase Negative /uL (Negative) Urine RBC <1 /hpf (0 - 3) Urine Microscopic WBC 1 /HPF (0-3) Urine Squamous Epithelial Cells Few /hpf (<5) Urine Bacteria None seen /hpf (None Seen) Urine Glucose Normal mg/dL (Normal) Labs and/or images reviewed: Labs reviewed by me, Image(s) reviewed by me Assessment/Plan Assessment/Plan Acute abdominal pain Cholelithiasis without evidence of cholecystitis, HIDA scan neg, consult for surgeon Dr. Blaine Caraballo, appreciated, GI consult by Dr. Loki Caraballo appreciated MRCP shows no cholelithiasis no choledocholithiasis Acute kidney injury Possible chest wall strain. Patient lifts heavy weights baclofen Acute dehydration: IV fluids Time Spent 40 minutes Plan discussed with: Patient Date of Service: Sep 11, 2025 Billing Provider: JAILYN MICHELLE MD Common Visit Codes: [id number] INP/OBS CARE(HIGH) JAILYN MICHELLE MD Sep 11, 2025 10:57
--- NOTE | 2025-09-11 11:36 | DVHPN2 ---
Progress Note Date Seen: Sep 11, 2025 Resident Creating Document: JOSE EUCEDA RESIDENT Medical Necessity Reason Pt with a Central, PICC or Fol: No Subjective Review of Systems 25-year-old male with no past medical history presents to the ER with a chief complaint of right-sided upper abdominal pain for the past 2 days, started after few hours of eating dinner. He said he ate some chicken which is his usual routine, he reports pain on ambulation, worsening pain on deep breaths and sitting or standing. Denies fever, chills, nausea, vomiting, constipation or diarrhea at this time. Patient was taking ibuprofen for the couple of days. GI consultation for cholelithiasis Past medical/surgical history: Denies Home medication: Ibuprofen PRN Social history: Denies smoking/drinking/drug use Patient seen and examined. Denies fever, chills, nausea, vomiting or any abdominal symptoms. Right-sided localized abdominal pain Objective vital signs Vital Sign Date Time Temp Pulse Resp B/P (MAP) Pulse Ox O2 Delivery O2 Flow Rate FiO2 09/11/25 09:00 97.9 55 18 108/45 (66) 96 97.9 09/11/25 08:00 Room Air* 0 21 Total Intake and Output 09/10/25 09/10/25 09/11/25 15:00 23:00 07:00 Intake Total 125 ml 400 ml Balance 125 ml 400 ml medications Current Medications Medications Dose Ordered Sig/Nimco Route Start Time Stop Time Status Last Admin Dose Admin Pantoprazole Sodium 40 mg DAILY IV 09/10/25 10:00 09/10/25 09:27 40 MG Acetaminophen/ Hydrocodone Bitart 1 tab Q4HP PRN PO 09/09/25 14:45 09/10/25 18:35 1 TAB Ondansetron HCl 4 mg Q4HP PRN IV 09/09/25 14:45 Acetaminophen 650 mg Q6HP PRN PO 09/09/25 14:45 Morphine Sulfate 2 mg Q6HPRN PRN IV 09/09/25 14:45 Examination Patient lying in bed, in no acute distress General: Over weight, afebrile, palor, mucosae are moist Cardiovascular: Regular S1 and S2. No murmurs, gallops or rubs. No JVD elevation. No pedal edema Respiratory: Normal B/L air entry on room air. Clear lung sounds on auscultation Abdomen: Soft, nontender, nondistended, normoactive bowel sounds, no rebound tenderness, no organomegaly, no masses Genitourinary: Deferred MSK/skin: Mobilizes 4 limbs. Skin is dry and warm Neurological: No motor, no sensitive deficits, normal speech. Pupils are isocoric and reactive. Psych/Mental Status: A/Ox3 laboratory and microbiology Laboratory Tests 09/10/25 04:42 Test 09/10/25 04:42 Range/Units Serum Glucose 71 L 74-106 mg/dL Labs and/or images reviewed: Labs reviewed by me, Image(s) reviewed by me Problem List/Assessment/Plan Problem List/Assessment/Plan Abdominal pain Rule out cholecystitis Acute kidney injury likely vasomotor GB ultrasound shows Possible cholelithiasis without evidence of acute cholecystitis. HIDA scan shows no cystic duct obstruction MRCP shows Dilated gallbladder without surrounding inflammatory change or edema of unknown etiology, No evidence of choledocholithiasis or cholelithiasis Plan/Recommendation Plan: Recommendation: Dr. Caraballo HIDA scan and MRCP unremarkable for cholelithiasis and choledocholithiasis. No acute GI intervention indicated at this time.Continue conservative management, trial of baclofen Diet increased to regular diet. Follow up with direct bilirubin, CMP Protonix 40 mg p.o. daily Follow up with surgery recommendations Plan discussed with patient in which all questions have been answered Case discussed with Dr. Caraballo Plan discussed with: Patient, Other (Parents at bedside) My Orders My Orders Orders - JOSE EUCEDA Procedure Category Date Status Time Mrcp Mri MRI 09/10/25 Resulted 13:22 Clear Liq Diet DIET 09/10/25 Transmitted Dinner JOSE EUCEDA Sep 11, 2025 11:36
[2025-09-11 12:30] LABS: Hematocrit 46.8 % (41.0-53.0); Hemoglobin 16.3 g/dL (13.5-17.5); Mean Corpuscular Hemoglobin 29.3 pg (28.0-32.0); Mean Corpuscular Volume 84.3 fL (80.0-100.0); Nucleated Red Blood Cells % 0.2 %
[2025-09-11 12:48] LABS: Alanine Aminotransferase 21 U/L (7-40); Albumin 4.5 g/dL (3.2-4.8); Alkaline Phosphatase 70 U/L (46-116); Anion Gap 7 (5-15); BUN/Creatinine Ratio 7.1 (10.0-20.0); Calcium 9.8 mg/dL (8.7-10.4); Carbon Dioxide 29 mmol/L (20-31); Chloride 102 mmol/L (98-107); Potassium 4.2 mmol/L (3.5-5.1); Sodium 138 mmol/L (136-145); Total Protein 7.7 g/dL (5.7-8.2)
[2025-09-11 12:51] LABS: Bilirubin, Total 1.8 mg/dL (0.2-1.0); Blood Urea Nitrogen 7 mg/dL (9-23); Glucose 74 mg/dL (74-106)
[2025-09-11] MEDS: BACLOFEN 10 MG TAB PO ONE (13:43)
--- NOTE | 2025-09-11 17:42 | DVHPN2 ---
Progress Note Date Seen: Sep 11, 2025 Medical Necessity Reason Pt with a Central, PICC or Fol: No Objective vital signs Vital Sign Date Time Temp Pulse Resp B/P (MAP) Pulse Ox O2 Delivery O2 Flow Rate FiO2 09/11/25 16:58 98.2 51 16 132/60 (84) 98 98.2 09/11/25 08:00 Room Air* 0 21 Total Intake and Output 09/10/25 09/10/25 09/11/25 15:00 23:00 07:00 Intake Total 125 ml 400 ml Balance 125 ml 400 ml medications Current Medications Medications Dose Ordered Sig/Nimco Route Start Time Stop Time Status Last Admin Dose Admin Pantoprazole Sodium 40 mg DAILY IV 09/10/25 10:00 09/10/25 09:27 40 MG Acetaminophen/ Hydrocodone Bitart 1 tab Q4HP PRN PO 09/09/25 14:45 09/10/25 18:35 1 TAB Ondansetron HCl 4 mg Q4HP PRN IV 09/09/25 14:45 Acetaminophen 650 mg Q6HP PRN PO 09/09/25 14:45 Morphine Sulfate 2 mg Q6HPRN PRN IV 09/09/25 14:45 laboratory and microbiology Laboratory Tests 09/11/25 12:00 Test 09/11/25 12:00 Range/Units Serum Glucose 74 74-106 mg/dL Problem List/Assessment/Plan Problem List/Assessment/Plan AFEBRILE VSS ABD SOFT NON TENDER MRCP NEG FOR GALL STONES NEG FOR CBD STONE [place]UL[place]NA DIET NO INDICATION FOR SURGERY CLEARED FOR DISCHARGE Plan discussed with: Patient KATERIN AGUAYO MD Sep 11, 2025 17:42
[2025-09-12 01:18] VITALS: BP 121/62; PULSE 45; RESP 18; TEMP 97.8; O2SAT 97
[2025-09-12 04:39] VITALS: BP 110/58; PULSE 52; RESP 17; TEMP 98.2; O2SAT 98
[2025-09-12 08:00] VITALS: RESP 16
[2025-09-12 09:00] VITALS: BP 120/67; PULSE 61; RESP 20; TEMP 97.5; O2SAT 98
--- NOTE | 2025-09-12 11:01 | DVHPN2 ---
Reviewed: Care Plan, H&P, Labs, Medications, Previous Orders, Radiology Changes from previous H/P or p: No Changes Objective Vitals Vital Signs Date Time Temp Pulse Resp B/P (MAP) Pulse Ox O2 Delivery O2 Flow Rate FiO2 09/12/25 09:00 97.5 61 20 120/67 (84) 98 97.5 09/12/25 08:00 Room Air* 0 21 Intake/Output Intake and Output 09/12/25 07:00 Intake Total 3200 ml Balance 3200 ml Intake Oral 3200 ml # Voids 7 Medications Current Medications Medications Dose Ordered Sig/Nimco Route Start Time Stop Time Status Last Admin Dose Admin Pantoprazole Sodium 40 mg DAILY IV 09/10/25 10:00 09/10/25 09:27 40 MG Acetaminophen/ Hydrocodone Bitart 1 tab Q4HP PRN PO 09/09/25 14:45 09/10/25 18:35 1 TAB Ondansetron HCl 4 mg Q4HP PRN IV 09/09/25 14:45 Acetaminophen 650 mg Q6HP PRN PO 09/09/25 14:45 Morphine Sulfate 2 mg Q6HPRN PRN IV 09/09/25 14:45 Laboratory Results Laboratory Tests 09/11/25 12:00 Chemistry Test 09/11/25 12:00 Albumin 4.5 g/dL (3.2-4.8) Calcium Level 9.8 mg/dL (8.7-10.4) Total Protein 7.7 g/dL (5.7-8.2) LFT Test 09/11/25 12:00 Alanine Aminotransferase (ALT) 21 U/L (7-40) Alkaline Phosphatase 70 U/L (46-116) Aspartate Amino Transferase (AST) 23 U/L (13-40) Direct Bilirubin 0.6 mg/dL (<0.3) H Total Bilirubin 1.8 mg/dL (0.2-1.0) H Urinalysis Test 09/10/25 17:38 Urine Color Light-yellow (Yellow) Urine Clarity Clear (Clear) Urine pH 5.5 (5.0-9.0) Urine Specific [place] 1.007 (1.001-1.035) Urine Protein Negative (Negative) Urine Ketones 1+ (Negative) H Urine Blood Negative /uL (Negative) Urine Nitrite Negative (Negative) Urine Bilirubin Negative (Negative) Urine Urobilinogen Normal mg/dL (Negative) Urine Leukocyte Esterase Negative /uL (Negative) Urine RBC <1 /hpf (0 - 3) Urine Microscopic WBC 1 /HPF (0-3) Urine Squamous Epithelial Cells Few /hpf (<5) Urine Bacteria None seen /hpf (None Seen) Urine Glucose Normal mg/dL (Normal) Labs and/or images reviewed: Labs reviewed by me, Image(s) reviewed by me Assessment/Plan Assessment/Plan Acute abdominal pain MRCP negative for cholelithiasis or choledocholithiasis, HIDA scan neg, consult for surgeon Dr. Blaine Caraballo, appreciated, GI consult by Dr. Loki Caraballo appreciated, surgeon cleared for discharge MRCP shows no cholelithiasis no choledocholithiasis Acute kidney injury Possible chest wall strain. Patient lifts heavy weights baclofen Acute dehydration: IV fluids Time Spent 40 minutes Plan discussed with: Patient Date of Service: Sep 12, 2025 Billing Provider: JAILYN MICHELLE MD Common Visit Codes: [id number] INP/OBS CARE(HIGH) JAILYN MICHELLE MD Sep 12, 2025 11:01
--- NOTE | 2025-09-12 11:05 | DVHDS2 ---
Discharge Summary Date of Admission Sep 09, 2025 at 14:34 Date of Discharge: Sep 12, 2025 Admitting Diagnosis Right upper quadrant pain Wounds: None Labs/Diagnostic Data: Laboratory Results Test 09/11/25 12:00 09/11/25 00:30 09/10/25 17:38 09/10/25 15:52 White Blood Count 4.8 10^3/uL (4.4-10.8) Red Blood Count 5.56 10^6/uL (4.5-5.90) Hemoglobin 16.3 g/dL (13.5-17.5) Hematocrit 46.8 % (41.0-53.0) Mean Corpuscular Volume 84.3 fL (80.0-100.0) Mean Corpuscular Hemoglobin 29.3 pg (28.0-32.0) Mean Corpuscular Hemoglobin Concent 34.8 g/dL (32.0-36.0) Red Cell Distribution Width 12.7 % (11.8-14.3) Platelet Count 261 10^3/uL (140-450) Mean Platelet Volume 7.5 fL (6.9-10.8) Neutrophils (%) (Auto) 49.6 % (37.0-80.0) Lymphocytes (%) (Auto) 38.9 % (10.0-50.0) Monocytes (%) (Auto) 8.8 % (0.0-12.0) Eosinophils (%) (Auto) 2.0 % (0.0-7.0) Basophils (%) (Auto) 0.7 % (0.0-2.0) Neutrophils # (Auto) 2.4 10 ^3/uL (1.6-8.6) Lymphocytes # (Auto) 1.9 10 ^3/uL (0.4-5.4) Monocytes # (Auto) 0.4 10 ^3/uL (0-1.3) Eosinophils # (Auto) 0.1 10 ^3/uL (0-0.8) Basophils # (Auto) 0 10 ^3/uL (0-0.2) Nucleated Red Blood Cells 0.2 % Sodium Level 138 mmol/L (136-145) Potassium Level 4.2 mmol/L (3.5-5.1) Chloride Level 102 mmol/L (98-107) Carbon Dioxide Level 29 mmol/L (20-31) Anion Gap 7 (5-15) Blood Urea Nitrogen 7 mg/dL (9-23) Creatinine 0.99 mg/dL (0.700-1.30) Glomerular Filtration Rate Calc 109 mL/min (>90) BUN/Creatinine Ratio 7.1 (10.0-20.0) Serum Glucose 74 mg/dL (74-106) Calcium Level 9.8 mg/dL (8.7-10.4) Total Bilirubin 1.8 mg/dL (0.2-1.0) Direct Bilirubin 0.6 mg/dL (<0.3) Aspartate Amino Transferase (AST) 23 U/L (13-40) Alanine Aminotransferase (ALT) 21 U/L (7-40) Alkaline Phosphatase 70 U/L (46-116) Total Protein 7.7 g/dL (5.7-8.2) Albumin 4.5 g/dL (3.2-4.8) Influenza Type A Antigen Negative (Negative) Influenza Type B Antigen Negative (Negative) SARS-CoV-2 Antigen (Rapid) Negative (NEGATIVE) Urine Color Light-yellow (Yellow) Urine Clarity Clear (Clear) Urine pH 5.5 (5.0-9.0) Urine Specific [place] 1.007 (1.001-1.035) Urine Protein Negative (Negative) Urine Ketones 1+ (Negative) Urine Blood Negative /uL (Negative) Urine Nitrite Negative (Negative) Urine Bilirubin Negative (Negative) Urine Urobilinogen Normal mg/dL (Negative) Urine Leukocyte Esterase Negative /uL (Negative) Urine RBC <1 /hpf (0 - 3) Urine Microscopic WBC 1 /HPF (0-3) Urine Squamous Epithelial Cells Few /hpf (<5) Urine Bacteria None seen /hpf (None Seen) Urine Glucose Normal mg/dL (Normal) Urine Opiates Screen Neg (NEGATIVE) Urine Fentanyl Screen Neg (NEGATIVE) Urine Barbiturates Screen Neg (NEGATIVE) Urine Phencyclidine Screen Neg (NEGATIVE) Urine Amphetamines Screen Neg (NEGATIVE) Urine Benzodiazepines Screen Neg (NEGATIVE) Urine Cocaine Screen Neg (NEGATIVE) Urine Cannabinoids Screen Neg (NEGATIVE) Anti-Nuclear Antibody Screen Negative (Negative) Test 09/10/25 14:31 09/10/25 04:42 09/09/25 12:39 Prothrombin Time 11.9 sec (9.3-11.8) Prothrombin Time INR 1.14 (0.9-1.15) Activated Partial Thromboplast Time 28.8 SEC (24.5-34.5) Hemoglobin A1c 5.1 % A1C (<5.7) Magnesium Level 2.3 mg/dL (1.6-2.6) Vitamin B12 Level 582 pg/mL (211-911) Vitamin D 25-Hydroxy 46.8 ng/mL (30.0-100) Thyroid Stimulating Hormone (TSH) 2.00 uIU/mL (0.55-4.78) Lipase 40 U/L (12-53) Other Laboratory Tests 09/11/25 12:00 Brief Hx & Hospital Course: 25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 CT abdomen pelvis without contrast showed possible cholelithiasis. MRCP ruled out cholelithiasis or choledocholithiasis and HIDA scan is negative. Seen by surgeon Dr. Blaine Caraballo and cleared for discharge patient possibly has a muscle strain advised not to lift heavy weights until symptoms resolved Consults/Reason for consult Surgeon Dr. Blaine Caraballo Operations or Procedures CT abdomen pelvis without contrast MRCP Condition at Discharge: Fair Final Diagnosis/Problems List Acute abdominal pain MRCP negative for cholelithiasis or choledocholithiasis, HIDA scan neg, consult for surgeon Dr. Blaine Caraballo, appreciated, GI consult by Dr. Loki Caraballo appreciated, surgeon cleared for discharge MRCP shows no cholelithiasis no choledocholithiasis Acute kidney injury Possible chest wall strain. Patient lifts heavy weights baclofen Discharge Disposition: Home Discharge Instruct/Medications Diet: Regular Activity: Light activity Follow Up/Referral: Follow up with your primary Dr Do Not lift heavy weights until the symptoms resolved Medications: none Patient Does not want any pain medication or muscle relaxants No Active Prescriptions or Reported Meds 39 (Time Taken discharge summary 39 minutes) Discharge Statement: "Patient was advised to return to the ER or call 911 if any headaches, dizziness, shortness of breath, chest pain, abdominal pain, bleeding, fevers, or worsening of medical condition. Patient was counseled about treatment plan, medications, possible side effects, patientverbalized understanding. All questions were answered to the best of my ability. This discharge took greater then 30 minutes in planning, reviewing documentation, counseling the patient, and discussing with other team members." ASSESSMENT ASSESSMENT Hospital Course Improved Assessment Acute abdominal pain MRCP negative for cholelithiasis or choledocholithiasis, HIDA scan neg, consult for surgeon Dr. Blaine Caraballo, appreciated, GI consult by Dr. Loki Caraballo appreciated, surgeon cleared for discharge MRCP shows no cholelithiasis no choledocholithiasis Acute kidney injury Possible chest wall strain. Patient lifts heavy weights baclofen Date of Service: Sep 12, 2025 Billing Provider: JAILYN MICHELLE MD Common Visit Codes: [id number] DISCH DAY >30min JAILYN MICHELLE MD Sep 12, 2025 11:05
--- NOTE | 2025-09-12 20:03 | DVHPN2 ---
Progress Note - Dictate Date Seen: Sep 12, 2025 (Late entryPatient seen at 10:00 a.m.) Medical Necessity Reason Pt with a Central, PICC or Fol: No Subjective Patient seen at bedside, patient is ambulating His abdominal pain has significantly improved He has a constant dull ache in the right upper quadrant MRCP showed no stones or CBD stones he has mild gallbladder distention Patient did take some ibuprofen recently Patient is tolerating a diet vital signs Vital Sign Date Time Temp Pulse Resp B/P (MAP) Pulse Ox O2 Delivery O2 Flow Rate FiO2 09/12/25 09:00 97.5 61 20 120/67 (84) 98 97.5 09/12/25 08:00 Room Air* 0 21 Total Intake and Output 09/11/25 09/11/25 09/12/25 15:00 23:00 07:00 Intake Total 1600 ml 1600 ml Balance 1600 ml 1600 ml objective General: Over weight, afebrile, palor, mucosae are moist Cardiovascular: Regular S1 and S2. No murmurs, gallops or rubs. No JVD elevation. No pedal edema Respiratory: Normal B/L air entry on room air. Clear lung sounds on auscultation Abdomen: Soft, nontender, nondistended, normoactive bowel sounds, no rebound tenderness, no organomegaly, no masses Genitourinary: Deferred MSK/skin: Mobilizes 4 limbs. Skin is dry and warm Neurological: No motor, no sensitive deficits, normal speech. Pupils are isocoric and reactive. Psych/Mental Status: A/Ox3 laboratory and microbiology Laboratory Tests 09/11/25 12:00 Test 09/11/25 12:00 Range/Units Serum Glucose 74 74-106 mg/dL Problems(with codes): (1) Intractable abdominal pain Prognosis Assessment plan Initial workup has not shown evidence of any cholecystitis or cholelithiasis I discussed the possibility for musculoskeletal pain Patient does workout and lives some heavy weights However he stated he had not been doing that the day the pain started Patient also had taken some ibuprofen recently Patient advised to discontinue ibuprofen and take Tylenol instead We can maintain himself on Pepcid or Protonix My contact information was given to follow up in my office as an outpatient pain persists to discuss elective endoscopy Once again thank you for allowing me to participate in the care of the patient, discharge planning is in progress Plan discussed with: Patient NIKUNJ AGUAYO MD Sep 12, 2025 20:03
== END 2025-09-12 12:49 | disposition home or self-care (01) | DRG 640 ==
LOC: ER 11:56 → OVERFLOW 14:34 → WEST WING 21:49
PROVIDERS: ADMIT Family Medicine; ATTEND Family Medicine
DX: E86.0 Dehydration (principal); N17.0 Acute kidney failure with tubular necrosis; K80.20 Calculus of gallbladder without cholecystitis without obstruction; Z20.822 Contact with and (suspected) exposure to COVID-19; Z82.49 Family history of ischemic heart disease and other diseases of the circulatory system; Z83.3 Family history of diabetes mellitus
CPT/HCPCS: 36415; 74181; 76705; 78226; 80053; 80307; 81001; 82248; 82306; 82607; 83036; 83690; 83735; 84443; 85025; 85610; 85730; 86038; 87426; 87804; 96374; G0378; J2405; J2470